=== PATIENT | male | born 1980 | race Caucasian/White ===

== ENCOUNTER → 2017-08-18 | Outpatient (CLI) | payer SELFPAY ==
[~2017-08-18] MED LIST: PERC5TAB12 PO; PRAM1 PO
--- NOTE | 2017-08-18 15:03 | RADRPT ---
EXAM DATE: 08/18/2017 2:37 PM EDT AGE/SEX: 36 years / Male INDICATIONS: Parkinson's. Tremors with shuffling gait. CLINICAL DATA: This is the patient's initial encounter. Patient reports that signs and symptoms have been present for > 1 year and indicates a pain score of 0/10. MEDICAL/SURGICAL HISTORY: Non-responsive. Non-responsive. COMPARISON: No prior exams available for comparison. No external comparison. DOSE: 5.1 mCi Ioflupane Iodine-123 in 2.5ml total volume. MEDICATION(S): 130 mg Potasium Iodine PO one hour prior to injection. IMAGING: Spect/CT imaging with fusion was performed. SPECT IMAGIN hr30 min RADIATION DOSE: 30.27 CTDIvol(mGy) TECHNIQUE: SPECT imaging of the brain was performed in sagittal, axial and coronal planes. Attenuati on correction was performed with computed tomography and both the attenuation correction and non-atte nuation corrected data sets were reviewed. FINDINGS: There is normal biodistribution of radionuclide with symmetric crescent-shaped areas of activity are in the striatum which appears distinct relative to the surrounding brain tissue. CONCLUSION: 1. Normal biodistribution. Electronically signed by: Judah Jean MD 08/18/2017 3:02 PM EDT
== END ==
LOC: HRAD 08:26
PROVIDERS: ATTEND Specialist
DX: G20 Parkinson's disease (principal)
CPT/HCPCS: 78607; A9584